=== PATIENT | male | born 1965 | race Two or more races ===

== ENCOUNTER 2021-02-03 15:01 | Emergency (ER) | payer OTHER ==
[~2021-02-03] VITALS: Ht 160 cm; Wt 75.3 kg
[2021-02-03 17:18] LABS: Basophils # (auto) 0 10 ^3/uL (0-0.2); Basophils % (auto) 0.6 % (0.0-2.0); Eosinophils # (auto) 0.1 10 ^3/uL (0-0.8); Hematocrit 39.9 % (41.0-53.0); Hemoglobin 13.7 g/dL (13.5-17.5); Lymphocytes # (auto) 1.1 10 ^3/uL (0.4-5.4); Lymphocytes % (auto) 14.3 % (10.0-50.0); Mean Corpuscular Hemoglobin 31.9 pg (28.0-32.0); Mean Corpuscular Hgb Conc. 34.3 g/dL (32.0-36.0); Mean Corpuscular Volume 93.1 fL (80.0-100.0); Monocytes # (auto) 0.6 10 ^3/uL (0-1.3); Monocytes % (auto) 7.3 % (0.0-12.0); Neutrophils # (auto) 5.9 10 ^3/uL (1.6-8.6); Neutrophils % (auto) 76.8 % (37.0-80.0); Nucleated Red Blood Cells % 0.1 %; Platelet Count (auto) 199 10^3/uL (140-450); Red Blood Cells 4.29 10^6/uL (4.5-5.90); Red Cell Distribution Width 12.9 % (11.8-14.3); White Blood Cell 7.7 10^3/uL (4.4-10.8)
[2021-02-03 17:35] LABS: Albumin 3.2 g/dL (3.4-5.0); BUN/Creatinine Ratio 18.3; Calcium 8.2 mg/dL (8.5-10.1); Potassium 3.8 mmol/L (3.5-5.1)
[2021-02-03 17:37] LABS: Bilirubin, Total 0.3 mg/dL (0.2-1.0); Total Protein 7.7 g/dL (6.4-8.2)
[2021-02-03] MEDS ORDERED: ONDANSETRON ODT 4 MG TAB PO ONE (20:00)
[2021-02-03] MEDS ORDERED: HYDROcodone-ACET 5/325MG TAB PO ONE (20:00)
[2021-02-03 21:08] VITALS: BP 164/93
== END 2021-02-03 21:30 | disposition home or self-care (01) ==
LOC: ER 15:01
DX: M50.80 Other cervical disc disorders, unspecified cervical region (principal); Z20.822 Contact with and (suspected) exposure to COVID-19
CPT/HCPCS: 36415; 70450; 72125; 80053; 83605; 85025; 87426; 99285; C9803; Q0162; U0003